=== PATIENT | female | born 1980 | race Caucasian/White ===

== ENCOUNTER 2016-07-20 20:46 | Emergency (ER) | payer OTHER ==
[~2016-07-20] VITALS: Ht 180.3 cm; Wt 150.5 kg
[~2016-07-20 20:46] MED LIST: ALBUTEROL SULF8.5 GM IH; BACLOFEN10 MG PO; BENTYL10 MG PO; BUPROPION HCL75 MG PO; CLARITIN10 M3 PO; FLEXERIL10 MG PO; HYDROCHLOROTHIA25 MG PO; HYDROCODON-ACE1 EAC7 PO; K-DUR10 MEQ PO; KEFLEX500 MG PO; LEVOTHYROXINE137 MCG PO; LEVOTHYROXINE50 MCG; LEVOTHYROXINE88 MCG PO; LIDODERM 5% P1 PATCH TD; LORTAB 5-325 M1 EACH PO; MOTRIN800 MG PO; NAPROSYN500 MG PO; NAPROXEN500 MG PO; NOHOMEMEDS; NORCO 5/3251 TABLET PO; PHENERGAN-CODE120 ML PO; PREDNISONE10 MG PO; PREDNISONE20 MG PO; PROAIR HFA8.5 GM IH; SYNTHROID100 MCG PO; TOPAMAX50 MG PO; TRAMADOL HCL50 MG PO; TRAZODONE HCL50 MG PO; TRIAMTERENE-HC1 EACH; ZITHROMAX Z-PA250 MG PO; ZITHROMAX250 MG PO; ZOFRAN ODT4 MG PO; ZOFRAN4 MG PO
[2016-07-20 21:13] LABS: ADD MIUA? NO; BILIRUBIN NEGATIVE; BLOOD NEGATIVE; COLOR YELLOW ((YELLOW)); GLUCOSE (STRIP) NEGATIVE; KETONES NEGATIVE; LEUKOCYTES NEGATIVE; NITRITE NEGATIVE; PH, URINE 5.5 (5-8); PROTEIN (STRIP) NEGATIVE; SPECIFIC GRAVITY 1.027 (1.000-1.030); UCUL ADDED? NO; UROBILINOGEN 0.2 MG/DL (0.2-1.0)
[2016-07-20 21:28] LABS: HEMATOCRIT 42.5 % (36.0-46.0); MCH 30.5 PG (29.0-34.0); MCHC 34.6 G/DL (30.0-36.0); MCV 88.2 FL (83-99); MEAN PLAT.VOLUME 10.3 uM^3 (9.5-12.4); PLATELET COUNT 308 K/uL (156-360); RBC DIS.WIDTH-CV 12.8 % (11.8-14.6); RBC DIS.WIDTH-SD 40.3 % (39-53); RED BLOOD COUNT 4.82 M/uL (3.80-5.20); WHITE BLOOD COUNT 10.1 K/uL (4.1-10.2)
[2016-07-20 21:36] LABS: CHLORIDE 104 mEq/L (99-109); POTASSIUM 4.1 mEq/L (3.7-5.4); SODIUM 139 mEq/L (136-147)
[2016-07-20 21:38] LABS: GLUCOSE 111 mg/dL (70-99)
[2016-07-20 21:39] LABS: ANION GAP 11 MEQ/L (2-14)
[2016-07-20 21:40] LABS: TOTAL BILIRUBIN 0.6 mg/dL (0.0-1.0)
[2016-07-20 21:41] LABS: ALKALINE PHOSPHATASE 65 IU/L (3-129)
[2016-07-20 21:42] LABS: GFR ESTIMATE (CALCULATED) > 59 mL/min/
[2016-07-20 21:43] LABS: UREA NITROGEN (BUN) 12 mg/dL (9-23)
[2016-07-20 21:50] LABS: QUANTITATIVE HCG < 4.0 MIU/ML
[2016-07-21] MEDS ORDERED: PERCOCET 5/31 TABLET PO (00:04)
[2016-07-21] MEDS ORDERED: ZOFRAN ODT4 MG PO (00:04)
[2016-07-21 00:14] VITALS: BP 167/87
== END 2016-07-21 00:22 | disposition home or self-care (01) ==
LOC: RME 20:46 → EME 20:46 → RME 07-21 00:22
DX: R10.30 Lower abdominal pain, unspecified (principal); R11.2 Nausea with vomiting, unspecified; R19.7 Diarrhea, unspecified; R68.83 Chills (without fever); I10 Essential (primary) hypertension; E03.9 Hypothyroidism, unspecified; Z90.49 Acquired absence of other specified parts of digestive tract
CPT/HCPCS: 74176; 80053; 81003; 84702; 85027; 99281; 99284; J1170

== ENCOUNTER 2016-08-10 17:34 | Emergency (ER) | payer OTHER ==
[~2016-08-10] VITALS: Ht 180.3 cm; Wt 155.4 kg
[~2016-08-10 17:34] MED LIST changes: +PERCOCET 5/31 TABLET PO
[2016-08-10 17:58] LABS: HEMATOCRIT 42.9 % (36.0-46.0); MCH 30.8 PG (29.0-34.0); MCV 90.5 FL (83-99); MEAN PLAT.VOLUME 10.8 uM^3 (9.5-12.4); PLATELET COUNT 263 K/uL (156-360); RBC DIS.WIDTH-CV 13.1 % (11.8-14.6); RBC DIS.WIDTH-SD 42.4 % (39-53); RED BLOOD COUNT 4.74 M/uL (3.80-5.20)
[2016-08-10 17:59] LABS: WHITE BLOOD COUNT 14.6 K/uL (4.1-10.2)
[2016-08-10 18:13] LABS: CHLORIDE 105 mEq/L (99-109); POTASSIUM 3.8 mEq/L (3.7-5.4); SODIUM 141 mEq/L (136-147)
[2016-08-10 18:15] LABS: GLUCOSE 126 mg/dL (70-99)
[2016-08-10 18:16] LABS: ANION GAP 14 MEQ/L (2-14)
[2016-08-10 18:17] LABS: ADD MIUA? NO; BILIRUBIN NEGATIVE; BLOOD NEGATIVE; COLOR YELLOW ((YELLOW)); GLUCOSE (STRIP) NEGATIVE; KETONES NEGATIVE; LEUKOCYTES NEGATIVE; NITRITE NEGATIVE; PH, URINE 5.5 (5-8); PROTEIN (STRIP) NEGATIVE; UCUL ADDED? NO; UROBILINOGEN 0.2 MG/DL (0.2-1.0)
[2016-08-10 18:19] LABS: ALKALINE PHOSPHATASE 65 IU/L (3-129); GFR ESTIMATE (CALCULATED) > 59 mL/min/
[2016-08-10 18:20] LABS: UREA NITROGEN (BUN) 11 mg/dL (9-23)
[2016-08-10 18:26] LABS: TOTAL BILIRUBIN 0.6 mg/dL (0.0-1.0)
[2016-08-10 18:30] LABS: QUANTITATIVE HCG < 4.0 MIU/ML
[2016-08-10] MEDS ORDERED: PEPCID20 MG PO (20:31)
[2016-08-10 20:54] VITALS: BP 145/71
== END 2016-08-10 20:55 | disposition home or self-care (01) ==
LOC: EME 17:34
DX: R10.9 Unspecified abdominal pain (principal); E03.9 Hypothyroidism, unspecified; I10 Essential (primary) hypertension; K21.9 Gastro-esophageal reflux disease without esophagitis
CPT/HCPCS: 74176; 80053; 81003; 84702; 85027; 99281; 99284; J1885

== ENCOUNTER 2016-12-01 21:21 | Emergency (ER) | payer OTHER ==
[~2016-12-01] VITALS: Ht 180.3 cm; Wt 151.7 kg
[~2016-12-01 21:21] MED LIST changes: +PEPCID20 MG PO
[2016-12-01 21:53] LABS: HEMATOCRIT 40.4 % (36.0-46.0); MCH 30.2 PG (29.0-34.0); MCHC 33.2 G/DL (30.0-36.0); MCV 91.2 FL (83-99); MEAN PLAT.VOLUME 10.5 uM^3 (9.5-12.4); PLATELET COUNT 243 K/uL (156-360); RBC DIS.WIDTH-CV 12.8 % (11.8-14.6); RBC DIS.WIDTH-SD 42.5 % (39-53); RED BLOOD COUNT 4.43 M/uL (3.80-5.20); WHITE BLOOD COUNT 10.3 K/uL (4.1-10.2)
[2016-12-01 22:02] LABS: CHLORIDE 105 mEq/L (99-109); POTASSIUM 3.9 mEq/L (3.7-5.4); SODIUM 139 mEq/L (136-147)
[2016-12-01 22:04] LABS: GLUCOSE 114 mg/dL (70-99)
[2016-12-01 22:05] LABS: ANION GAP 10 MEQ/L (2-14)
[2016-12-01 22:06] LABS: TOTAL BILIRUBIN 0.9 mg/dL (0.0-1.0)
[2016-12-01 22:07] LABS: ADD MIUA? YES; BILIRUBIN NEGATIVE; BLOOD LARGE; COLOR YELLOW ((YELLOW)); GLUCOSE (STRIP) NEGATIVE; KETONES NEGATIVE; LEUKOCYTES NEGATIVE; NITRITE NEGATIVE; PROTEIN (STRIP) NEGATIVE; SPECIFIC GRAVITY 1.013 (1.000-1.030)
[2016-12-01 22:08] LABS: ALKALINE PHOSPHATASE 65 IU/L (3-129); GFR ESTIMATE (CALCULATED) > 59 mL/min/
[2016-12-01 22:09] LABS: UREA NITROGEN (BUN) 10 mg/dL (9-23)
[2016-12-01 22:16] LABS: QUANTITATIVE HCG < 4.0 MIU/ML
[2016-12-01 22:26] LABS: BACTERIA NONE SEEN /HPF; CALCIUM OXALATE CRYSTALS 1+ /HPF; EPITHELIAL CELLS RARE /HPF; MUCUS TRACE /LPF; RED BLOOD CELLS TNTC /HPF (0-5); UCUL ADDED? NO; WHITE BLOOD CELLS 0-5 /HPF (0-5)
[2016-12-02 00:38] LABS: LIPASE 10 U/L (1.0-51.0)
[2016-12-02] MEDS ORDERED: ZOFRAN4 MG PO (01:01)
[2016-12-02 01:35] VITALS: BP 135/78
== END 2016-12-02 01:37 | disposition home or self-care (01) ==
LOC: EME 21:21
DX: R10.31 Right lower quadrant pain (principal); I10 Essential (primary) hypertension; K21.9 Gastro-esophageal reflux disease without esophagitis; E03.9 Hypothyroidism, unspecified; R31.9 Hematuria, unspecified
CPT/HCPCS: 71010; 74176; 80053; 81003; 83690; 84702; 85027; 99281; 99284; J1885

== ENCOUNTER 2017-02-02 22:27 | Emergency (ER) | payer OTHER ==
[~2017-02-02] VITALS: Ht 180.3 cm; Wt 155.7 kg
[2017-02-02 23:04] LABS: HEMATOCRIT 39.4 % (36.0-46.0); MCH 30.7 PG (29.0-34.0); MCV 90.2 FL (83-99); MEAN PLAT.VOLUME 10.4 uM^3 (9.5-12.4); PLATELET COUNT 244 K/uL (156-360); RBC DIS.WIDTH-CV 12.8 % (11.8-14.6); RBC DIS.WIDTH-SD 42.4 % (39-53); RED BLOOD COUNT 4.37 M/uL (3.80-5.20); WHITE BLOOD COUNT 12.2 K/uL (4.1-10.2)
[2017-02-02 23:15] LABS: CHLORIDE 101 mEq/L (99-109); SODIUM 137 mEq/L (136-147)
[2017-02-02 23:17] LABS: GLUCOSE 125 mg/dL (70-99)
[2017-02-02 23:19] LABS: ANION GAP 12 MEQ/L (2-14)
[2017-02-02 23:21] LABS: GFR ESTIMATE (CALCULATED) > 59 mL/min/
[2017-02-02 23:22] LABS: UREA NITROGEN (BUN) 10 mg/dL (9-23)
[2017-02-02 23:33] LABS: QUANTITATIVE HCG < 4.0 MIU/ML
[2017-02-02 23:45] LABS: ADD MIUA? NO; BILIRUBIN NEGATIVE; BLOOD NEGATIVE; COLOR YELLOW ((YELLOW)); GLUCOSE (STRIP) NEGATIVE; KETONES NEGATIVE; LEUKOCYTES NEGATIVE; NITRITE NEGATIVE; PROTEIN (STRIP) NEGATIVE; SPECIFIC GRAVITY 1.014 (1.000-1.030); UCUL ADDED? NO; UROBILINOGEN 0.2 MG/DL (0.2-1.0)
[2017-02-02 23:45] LABS: TOTAL BILIRUBIN 0.5 mg/dL (0.0-1.0)
[2017-02-02 23:46] LABS: ALKALINE PHOSPHATASE 64 IU/L (3-129)
[2017-02-02 23:49] LABS: DIRECT BILIRUBIN 0.2 mg/dL (0.0-0.3)
[2017-02-02 23:50] LABS: LIPASE 16 U/L (1.0-51.0)
[2017-02-03] MEDS ORDERED: LEVAQUIN500 MG PO (00:37)
[2017-02-03] MEDS ORDERED: MOTRIN600 MG PO (00:37)
[2017-02-03 00:47] VITALS: BP 92/54
[2017-02-04] MEDS ORDERED: NAPROSYN500 MG PO (22:49)
== END 2017-02-03 00:54 | disposition home or self-care (01) ==
LOC: EME 22:27
DX: R30.0 Dysuria (principal); R10.9 Unspecified abdominal pain; R50.9 Fever, unspecified; Z87.440 Personal history of urinary (tract) infections; I10 Essential (primary) hypertension; K21.9 Gastro-esophageal reflux disease without esophagitis; E03.9 Hypothyroidism, unspecified; Z90.49 Acquired absence of other specified parts of digestive tract
CPT/HCPCS: 74176; 80048; 80076; 81003; 83690; 84702; 85027; 99281; 99284; J1885

== ENCOUNTER 2017-02-04 19:51 | Emergency (ER) | payer OTHER ==
[~2017-02-04] VITALS: Ht 180.3 cm; Wt 122.4 kg
[~2017-02-04 19:51] MED LIST changes: +LEVAQUIN500 MG PO; +MOTRIN600 MG PO
[2017-02-04] MEDS ORDERED: NAPROSYN500 MG PO (22:49)
[2017-02-04 23:15] VITALS: BP 160/77
== END 2017-02-04 23:16 | disposition home or self-care (01) ==
LOC: EME 19:51
DX: S93.401A Sprain of unspecified ligament of right ankle, initial encounter (principal); X50.1XXA Overexertion from prolonged static or awkward postures, initial encounter; W10.1XXA Fall (on)(from) sidewalk curb, initial encounter; I10 Essential (primary) hypertension; E03.9 Hypothyroidism, unspecified
CPT/HCPCS: 73610; 99281; 99284

== ENCOUNTER 2017-03-13 22:18 | Emergency (ER) | payer OTHER ==
[~2017-03-13] VITALS: Ht 180.3 cm; Wt 151.1 kg
[~2017-03-13 22:18] MED LIST changes: +LEVOTHYROXINE150 MCG PO
[2017-03-13 22:41] LABS: ADD MIUA? NO; BILIRUBIN NEGATIVE; BLOOD NEGATIVE; COLOR YELLOW ((YELLOW)); GLUCOSE (STRIP) NEGATIVE; KETONES NEGATIVE; LEUKOCYTES NEGATIVE; NITRITE NEGATIVE; PROTEIN (STRIP) NEGATIVE; SPECIFIC GRAVITY 1.023 (1.000-1.030); UCUL ADDED? NO
[2017-03-13 22:47] LABS: HEMATOCRIT 41.1 % (36.0-46.0); MCHC 33.3 G/DL (30.0-36.0); MCV 90.1 FL (83-99); MEAN PLAT.VOLUME 10.6 uM^3 (9.5-12.4); PLATELET COUNT 292 K/uL (156-360); RBC DIS.WIDTH-CV 12.3 % (11.8-14.6); RBC DIS.WIDTH-SD 40.8 % (39-53); RED BLOOD COUNT 4.56 M/uL (3.80-5.20); WHITE BLOOD COUNT 13.7 K/uL (4.1-10.2)
[2017-03-13 23:01] LABS: CHLORIDE 102 mEq/L (99-109); POTASSIUM 3.7 mEq/L (3.7-5.4); SODIUM 136 mEq/L (136-147)
[2017-03-13 23:04] LABS: GLUCOSE 178 mg/dL (70-99)
[2017-03-13 23:05] LABS: ANION GAP 9 MEQ/L (2-14)
[2017-03-13 23:06] LABS: TOTAL BILIRUBIN 0.6 mg/dL (0.0-1.0)
[2017-03-13 23:07] LABS: ALKALINE PHOSPHATASE 83 IU/L (3-129); GFR ESTIMATE (CALCULATED) > 59 mL/min/
[2017-03-13 23:08] LABS: UREA NITROGEN (BUN) 10 mg/dL (9-23)
[2017-03-13 23:11] LABS: LIPASE 25 U/L (1.0-51.0)
[2017-03-13 23:19] LABS: QUANTITATIVE HCG < 4.0 MIU/ML
[2017-03-14] MEDS ORDERED: MEDROL DOSEPAK4 MG PO (02:05)
[2017-03-14] MEDS ORDERED: ROXICODONE5 MG PO (02:05)
[2017-03-14 02:20] VITALS: BP 140/89
[2017-03-18] MEDS ORDERED: DYAZIDE, MA1 CAPSULE PO (14:45)
[2017-03-18] MEDS ORDERED: CLARITIN,ALAVAR10 MG PO (14:46)
[2017-03-18] MEDS ORDERED: WELLBUTRIN XL300 MG PO (14:46)
[2017-03-18] MEDS ORDERED: ZANTAC150 MG PO (14:47)
[2017-03-18] MEDS ORDERED: TRAZODONE HCL50 MG PO (14:47)
[2017-03-18] MEDS ORDERED: ABILIFY5 MG PO (14:47)
== END 2017-03-14 02:21 | disposition home or self-care (01) ==
LOC: EME 22:18
DX: R10.11 Right upper quadrant pain (principal); R07.81 Pleurodynia; I10 Essential (primary) hypertension; E03.9 Hypothyroidism, unspecified
CPT/HCPCS: 71020; 74176; 80053; 81003; 83690; 84702; 85027; 99281; 99283

== ENCOUNTER → 2017-03-20 | Outpatient (CLI) | payer OTHER ==
[~2017-03-20] VITALS: Ht 180.3 cm; Wt 150.0 kg
[~2017-03-20] MED LIST changes: +ABILIFY5 MG PO; +CLARITIN,ALAVAR10 MG PO; +DYAZIDE, MA1 CAPSULE PO; +MEDROL DOSEPAK4 MG PO; +ROXICODONE5 MG PO; +WELLBUTRIN XL300 MG PO; +ZANTAC150 MG PO
== END | disposition home or self-care (01) ==
LOC: OPR 08:12 → EDSTATUS 09:00
PROC: 0FB13ZX Excision of Right Lobe Liver, Percutaneous Approach, Diagnostic (ICD-10-PCS; principal; 2017-03-20)
DX: K76.0 Fatty (change of) liver, not elsewhere classified (principal); R16.2 Hepatomegaly with splenomegaly, not elsewhere classified; Z87.898 Personal history of other specified conditions; Z90.49 Acquired absence of other specified parts of digestive tract; I10 Essential (primary) hypertension; E07.9 Disorder of thyroid, unspecified
CPT/HCPCS: 77012; 88307; 88313; J3010

== ENCOUNTER 2017-03-21 16:35 | Emergency (ER) | payer OTHER ==
[~2017-03-21] VITALS: Ht 180.3 cm; Wt 152.4 kg
[2017-03-21 17:44] LABS: HEMATOCRIT 44.1 % (36.0-46.0); MCH 29.9 PG (29.0-34.0); MCHC 33.6 G/DL (30.0-36.0); MCV 89.1 FL (83-99); MEAN PLAT.VOLUME 9.9 uM^3 (9.5-12.4); PLATELET COUNT 331 K/uL (156-360); RBC DIS.WIDTH-CV 12.4 % (11.8-14.6); RED BLOOD COUNT 4.95 M/uL (3.80-5.20); WHITE BLOOD COUNT 12.9 K/uL (4.1-10.2)
[2017-03-21 17:57] LABS: CHLORIDE 101 mEq/L (99-109); POTASSIUM 4.1 mEq/L (3.7-5.4); SODIUM 138 mEq/L (136-147)
[2017-03-21 18:00] LABS: GLUCOSE 119 mg/dL (70-99)
[2017-03-21 18:01] LABS: ANION GAP 10 MEQ/L (2-14)
[2017-03-21 18:02] LABS: PROTHROMBIN TIME 10.5 SEC (10.2-12.9); TOTAL BILIRUBIN 0.3 mg/dL (0.0-1.0)
[2017-03-21 18:03] LABS: ALKALINE PHOSPHATASE 74 IU/L (3-129); GFR ESTIMATE (CALCULATED) > 59 mL/min/
[2017-03-21 18:04] LABS: UREA NITROGEN (BUN) 14 mg/dL (9-23)
[2017-03-21] MEDS ORDERED: NORCO 5/3251 TABLET PO (21:31)
[2017-03-21 21:40] VITALS: BP 130/66
== END 2017-03-21 21:42 | disposition home or self-care (01) ==
LOC: EME 16:35
PROVIDERS: Physician Assistant
DX: R10.11 Right upper quadrant pain (principal); Z98.890 Other specified postprocedural states; K76.0 Fatty (change of) liver, not elsewhere classified; R01.1 Cardiac murmur, unspecified; Z90.49 Acquired absence of other specified parts of digestive tract; I10 Essential (primary) hypertension; E03.9 Hypothyroidism, unspecified
CPT/HCPCS: 74177; 80053; 85027; 85610; 99281; 99285; J3010; J7030

== ENCOUNTER 2017-06-08 09:27 | Emergency (ER) | payer OTHER ==
[~2017-06-08] VITALS: Ht 180.3 cm; Wt 157.8 kg
[2017-06-08] MEDS ORDERED: MOTRIN800 MG PO (10:07)
[2017-06-08 11:20] VITALS: BP 136/86
== END 2017-06-08 11:20 | disposition home or self-care (01) ==
LOC: EME 09:27
DX: M72.2 Plantar fascial fibromatosis (principal); M77.9 Enthesopathy, unspecified; M19.071 Primary osteoarthritis, right ankle and foot; M25.521 Pain in right elbow; E03.9 Hypothyroidism, unspecified
CPT/HCPCS: 73630; 99281; 99283

== ENCOUNTER 2017-07-26 12:52 | Emergency (ER) | payer OTHER ==
[~2017-07-26] VITALS: Ht 180.3 cm; Wt 158.0 kg
[2017-07-26 13:29] LABS: APPEARANCE CLEAR ((CLEAR)); BILIRUBIN NEGATIVE; BLOOD NEGATIVE; COLOR YELLOW ((YELLOW)); GLUCOSE (STRIP) NEGATIVE; KETONES NEGATIVE; LEUKOCYTES NEGATIVE; NITRITE NEGATIVE; PROTEIN (STRIP) NEGATIVE; SPECIFIC GRAVITY 1.017 (1.000-1.030); UCUL ADDED? NO; UROBILINOGEN 0.2 MG/DL (0.2-1.0)
[2017-07-26 13:38] LABS: HEMATOCRIT 42.4 % (36.0-46.0); HEMOGLOBIN 14.6 G/DL (11.9-15.5); MCH 30.5 PG (29.0-34.0); MCHC 34.4 G/DL (30.0-36.0); MCV 88.5 FL (83-99); PLATELET COUNT 265 K/uL (156-360); RBC DIS.WIDTH-SD 38.8 % (39-53); RED BLOOD COUNT 4.79 M/uL (3.80-5.20); WHITE BLOOD COUNT 7.9 K/uL (4.1-10.2)
[2017-07-26] MEDS ORDERED: TRIAMTERENE-HC1 EAC1 PO (13:40)
[2017-07-26 13:48] LABS: ALBUMIN 4.2 g/dL (3.2-4.8); CHLORIDE 105 mEq/L (99-109); POTASSIUM 4.1 mEq/L (3.7-5.4); SODIUM 138 mEq/L (136-147)
[2017-07-26 13:51] LABS: GLUCOSE 201 mg/dL (70-99); TOTAL PROTEIN 6.8 g/dL (6.4-8.3)
[2017-07-26 13:53] LABS: TOTAL BILIRUBIN 0.5 mg/dL (0.0-1.0)
[2017-07-26 13:54] LABS: ALKALINE PHOSPHATASE 76 IU/L (3-129); CREATININE 0.7 mg/dL (0.6-1.3); GFR ESTIMATE (CALCULATED) > 59 mL/min/
[2017-07-26 13:55] LABS: UREA NITROGEN (BUN) 10 mg/dL (9-23)
[2017-07-26 13:56] LABS: AST (GOT) 39 IU/L (2-34)
[2017-07-26 13:57] LABS: ALT (GPT) 54 IU/L (3-49)
[2017-07-26 14:03] LABS: QUANTITATIVE HCG < 4.0 MIU/ML
[2017-07-26] MEDS ORDERED: BENTYL10 MG PO (14:07)
[2017-07-26] MEDS ORDERED: IMODIUM A-D2 M2 PO (14:07)
[2017-07-26] MEDS ORDERED: ZOFRAN ODT4 MG PO (14:07)
[2017-07-26 14:15] VITALS: BP 153/95
== END 2017-07-26 14:29 | disposition home or self-care (01) ==
LOC: EME 12:52
DX: B34.9 Viral infection, unspecified (principal); I10 Essential (primary) hypertension; K21.9 Gastro-esophageal reflux disease without esophagitis; E03.9 Hypothyroidism, unspecified; F32.9 Major depressive disorder, single episode, unspecified
CPT/HCPCS: 80053; 81003; 84702; 85027; 99281; 99283

== ENCOUNTER 2017-07-31 21:13 | Emergency (ER) | payer OTHER ==
[~2017-07-31] VITALS: Ht 180.3 cm; Wt 157.1 kg
[~2017-07-31 21:13] MED LIST changes: +IMODIUM A-D2 M2 PO; +TRIAMTERENE-HC1 EAC1 PO
[2017-07-31 21:40] LABS: APPEARANCE CLEAR ((CLEAR)); BILIRUBIN NEGATIVE; BLOOD NEGATIVE; COLOR YELLOW ((YELLOW)); GLUCOSE (STRIP) 50; KETONES NEGATIVE; LEUKOCYTES NEGATIVE; NITRITE NEGATIVE; PROTEIN (STRIP) NEGATIVE; SPECIFIC GRAVITY 1.028 (1.000-1.030); UCUL ADDED? NO; UROBILINOGEN 0.2 MG/DL (0.2-1.0)
[2017-07-31 22:04] LABS: HEMATOCRIT 41.5 % (36.0-46.0); MCH 30.7 PG (29.0-34.0); MCHC 33.7 G/DL (30.0-36.0); PLATELET COUNT 288 K/uL (156-360); RBC DIS.WIDTH-CV 12.2 % (11.8-14.6); RBC DIS.WIDTH-SD 40.5 % (39-53); RED BLOOD COUNT 4.56 M/uL (3.80-5.20)
[2017-07-31 22:10] LABS: ALBUMIN 4.3 g/dL (3.2-4.8)
[2017-07-31 22:11] LABS: CHLORIDE 103 mEq/L (99-109); POTASSIUM 3.8 mEq/L (3.7-5.4); SODIUM 137 mEq/L (136-147)
[2017-07-31 22:13] LABS: GLUCOSE 273 mg/dL (70-99); TOTAL PROTEIN 7.1 g/dL (6.4-8.3)
[2017-07-31 22:16] LABS: ALKALINE PHOSPHATASE 83 IU/L (3-129)
[2017-07-31 22:19] LABS: AST (GOT) 39 IU/L (2-34); CREATININE 0.8 mg/dL (0.6-1.3); GFR ESTIMATE (CALCULATED) > 59 mL/min/; UREA NITROGEN (BUN) 9 mg/dL (9-23)
[2017-07-31 22:20] LABS: ALT (GPT) 52 IU/L (3-49); LIPASE 15 U/L (1.0-51.0)
[2017-07-31 22:27] LABS: QUANTITATIVE HCG < 4.0 MIU/ML
[2017-07-31 22:28] LABS: TOTAL BILIRUBIN 0.3 mg/dL (0.0-1.0)
[2017-08-01] MEDS ORDERED: MOTRIN800 MG PO (00:27)
[2017-08-01 00:56] VITALS: BP 130/95
== END 2017-08-01 01:04 | disposition home or self-care (01) ==
LOC: EME 21:13 → RME 21:13
DX: R10.11 Right upper quadrant pain (principal); K76.0 Fatty (change of) liver, not elsewhere classified; K21.9 Gastro-esophageal reflux disease without esophagitis; I10 Essential (primary) hypertension; E03.9 Hypothyroidism, unspecified; F32.9 Major depressive disorder, single episode, unspecified; F31.9 Bipolar disorder, unspecified; Z90.49 Acquired absence of other specified parts of digestive tract
CPT/HCPCS: 74177; 80053; 81003; 83690; 84702; 85027; 99281; 99284; J1885; J2270; J7030

== ENCOUNTER → 2017-09-08 | Outpatient (CLI) | payer OTHER | END | disposition home or self-care (01) | LOC: CDC 11:30 | DX: Z01.810 Encounter for preprocedural cardiovascular examination (principal); G56.02 Carpal tunnel syndrome, left upper limb; G56.22 Lesion of ulnar nerve, left upper limb; M25.532 Pain in left wrist | CPT/HCPCS: 93000 ==

== ENCOUNTER 2017-11-11 14:14 | Emergency (ER) | payer OTHER ==
[~2017-11-11] VITALS: Ht 180.3 cm; Wt 152.5 kg
[2017-11-11 15:09] LABS: CARBON DIOXIDE (BICARBONATE) 33.2 MEQ/L (20-31); HEMOGLOBIN 14.1 G/DL (11.9-15.5); MCH 31.2 PG (29.0-34.0); MCHC 34.4 G/DL (30.0-36.0); MCV 90.7 FL (83-99); PLATELET COUNT 248 K/uL (156-360); RBC DIS.WIDTH-CV 12.7 % (11.8-14.6); RED BLOOD COUNT 4.52 M/uL (3.80-5.20); WHITE BLOOD COUNT 7.8 K/uL (4.1-10.2)
[2017-11-11 15:19] LABS: ALBUMIN 4.3 g/dL (3.2-4.8); CHLORIDE 104 mEq/L (99-109); SODIUM 139 mEq/L (136-147)
[2017-11-11 15:20] LABS: MAGNESIUM 2.3 mg/dL (1.3-2.7)
[2017-11-11 15:21] LABS: GLUCOSE 230 mg/dL (70-99)
[2017-11-11 15:23] LABS: TOTAL BILIRUBIN 0.6 mg/dL (0.0-1.0)
[2017-11-11 15:25] LABS: ALKALINE PHOSPHATASE 84 IU/L (3-129); CREATININE 0.7 mg/dL (0.6-1.3); GFR ESTIMATE (CALCULATED) > 59 mL/min/; PHOSPHORUS 3.3 mg/dL (2.5-4.9)
[2017-11-11 15:26] LABS: UREA NITROGEN (BUN) 12 mg/dL (9-23)
[2017-11-11 15:27] LABS: AST (GOT) 33 IU/L (2-34)
[2017-11-11 15:28] LABS: ALT (GPT) 50 IU/L (3-49); LIPASE 19 U/L (1.0-51.0)
[2017-11-11 15:30] LABS: TROP-I INTERPRETATION NEGATIVE; TROPONIN-I < 0.01 ng/mL (0.0-0.30)
[2017-11-11 15:34] LABS: QUANTITATIVE HCG < 4.0 MIU/ML
[2017-11-11 16:10] LABS: THYROTROPIN (TSH) 0.54 MIU/L (0.4-5.5)
[2017-11-11 17:07] LABS: APPEARANCE CLEAR ((CLEAR)); BILIRUBIN NEGATIVE; BLOOD NEGATIVE; COLOR YELLOW ((YELLOW)); GLUCOSE (STRIP) 50; KETONES NEGATIVE; LEUKOCYTES NEGATIVE; NITRITE NEGATIVE; PROTEIN (STRIP) NEGATIVE; SPECIFIC GRAVITY 1.014 (1.000-1.030)
[2017-11-11 17:56] VITALS: BP 110/67
== END 2017-11-11 17:58 | disposition home or self-care (01) ==
LOC: EME 14:14
PROVIDERS: Emergency Medicine
DX: E11.65 Type 2 diabetes mellitus with hyperglycemia (principal); Z79.4 Long term (current) use of insulin; I10 Essential (primary) hypertension; E03.9 Hypothyroidism, unspecified; F32.9 Major depressive disorder, single episode, unspecified; K21.9 Gastro-esophageal reflux disease without esophagitis
CPT/HCPCS: 71046; 80053; 81003; 82803; 82948; 83605; 83690; 83735; 83930; 84100; 84443; 84484; 84702; 85027; 87040; 93005; 99281; 99285; J7030

== ENCOUNTER 2017-12-30 12:05 | Emergency (ER) | payer OTHER ==
[~2017-12-30] VITALS: Ht 180.3 cm; Wt 148.5 kg
[2017-12-30] MEDS ORDERED: PERCOCET 10/1 TABLET PO (15:23)
[2017-12-30] MEDS ORDERED: NAPROSYN500 MG PO (15:23)
[2017-12-30 15:56] VITALS: BP 120/77
== END 2017-12-30 15:57 | disposition home or self-care (01) ==
LOC: EME 12:05
DX: M54.12 Radiculopathy, cervical region (principal); M47.892 Other spondylosis, cervical region; G56.03 Carpal tunnel syndrome, bilateral upper limbs; F32.9 Major depressive disorder, single episode, unspecified; I10 Essential (primary) hypertension; K21.9 Gastro-esophageal reflux disease without esophagitis; E03.9 Hypothyroidism, unspecified
CPT/HCPCS: 72040; 99281; 99284; J1885